=== PATIENT | male | born 1985 | race Caucasian/White ===

== ENCOUNTER 2024-07-09 22:40 | Inpatient (IN) | payer MEDICARE, MEDICAID ==
[2024-07-10] MEDS ORDERED: OLANZapine 10 MG TAB PO PRN (02:31)
[2024-07-10] MEDS ORDERED: MAGNESIUM HYDROXIDE 2,400 MG/30 ML CUP PO PRN (02:31)
[2024-07-10] MEDS ORDERED: MAG HYDROX/AL HYDROX/SIMETH 355 ML BOTTLE PO PRN (02:31)
[2024-07-10] MEDS ORDERED: hydrOXYzine HCL 50 MG/ML 1 ML VIAL IM PRN (02:31)
[2024-07-10] MEDS ORDERED: hydrOXYzine HCL 25 MG TAB PO PRN (02:31)
[2024-07-10] MEDS: NICOTINE 14MG/24HR PATCH TRANSDERM SCH (08:51)
[2024-07-10] MEDS ORDERED: traZODone HCL 50 MG TAB PO PRN (12:32)
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
[2024-07-10] MEDS: risperiDONE 1 MG TAB PO SCH (20:10)
--- NOTE | 2024-07-10 21:57 | P.CONS ---
History of Present Illness - Reason for Consult Consult date: 07/10/24 medical co-managmenet - Chief Complaint psychosis - History of Present Illness Suleman is a 38-year-old male with a past medical history of schizoaffective disorder. As per review of psychiatry team notes the patient present to the hospital psychosis. I had examined the patient with the nurse present as per the patient request. The patient denies any prior psychiatric diagnosis history. He expresses that he is currently challenging the medical system as he does not wish that he needs to be hospitalized he does report history of PTSD. He does not take any current medications. He denies any alcohol use and denies any recreational drug use. He denies any other complaints upon my evaluation. He does report that he does take occasionally bacitracin for his left foot Most recent vital signs are from from this morning which reveals a heart rate of 102 and blood pressure of 148/92. There is no other lab work on file Review of Systems Pertinent positives and negatives as discussed in HPI, a complete review of systems was performed and all other systems are negative. Past Medical History Past Medical History: Asthma History of Any Multi-Drug Resistant Organisms: None Reported Past Surgical History: Orthopedic Surgery Additional Past Surgical History / Comment(s): Nasal reconstruction, wrist surgery Past Anesthesia/Blood Transfusion Reactions: No Reported Reaction Smoking Status: Current every day smoker - Past Family History Mother Family Medical History: No Reported History Medications and Allergies Allergies Allergy/AdvReac Type Severity Reaction Status Date / Time fluphenazine Allergy Anaphylaxis Verified 07/10/24 02:31 haloperidol [From Haldol] Allergy Anaphylaxis Verified 07/10/24 02:31 Penicillins Allergy Rash/Hives Verified 07/10/24 02:31 Physical Exam Vitals: Vital Signs Temp Pulse Resp BP Pulse Ox 07/10/24 08:52 102 H 148/92 07/10/24 02:37 97.9 F 98 16 146/96 99 Intake and Output 07/10/24 07/10/24 07/10/24 06:59 14:59 22:59 Other: Weight 140.245 kg General: non toxic, no distress, male, obese appears stated age Derm: warm, dry Head: atraumatic, normocephalic, symmetric Eyes: EOMI, no lid lag, anicteric sclera ENT: Nose and ears atraumatic, no thrush, no pharyngeal erythema Neck: trachea midline, supple Mouth: no lip lesion, mucus membranes moist Cardiovascular: S1S2 reg, no murmur, Lungs: clear to ascultation bilateral Abdominal: soft, nontender to palpation, obese Ext: no gross muscle atrophy Neuro: moving all extremeties Psych: delusional thought process. defensive. Assessment and Plan Assessment: #) Schzioaffective disorder. Management primary as psychiatry team. Continue risperidone 1 mg hs as per psychiatry team #) tobacco use, tobacco cessation recommended. nicotine patch while inpatient #) Obesity, BMI 36.7. weight loss recommended #) Elevated bp without formal diagnosis of primary htn. monitor BP UDS, CBC, CMP a1c, tsh and lipid profile pending at the time of this writing Thank you for allowing us to take care of this patient. Please do not hesitate to contact sound physicians if any questions arise. Time with Patient: Greater than 30
[2024-07-11 01:20] LABS: Basophils # (A) 0.06 10*3/uL (0.00-0.10); Basophils % (A) 0.5 %; Eosinophils % (A) 0.8 %; HCT 45.8 % (39.6-50.0); HGB 15.6 g/dL (13.0-17.0); Lymphocytes # (A) 2.54 10*3/uL (0.90-5.00); MCH 29.4 pg (27.0-32.0); MCHC 34.1 g/dL (32.0-37.0); MCV 86.4 fL (80.0-97.0); Mean Platelet Volume 10.5 fL (9.5-12.2); Monocytes % (A) 9.1 %; Neutrophils # (A) 8.25 10*3/uL (1.80-7.70); Neutrophils % (A) 68.2 %; Platelet Count 304 10*3/uL (140-440); RDW 13.9 % (11.5-14.5)
[2024-07-11 01:22] LABS: ALT 54 U/L (4-49); AST 36 U/L (17-59); African American GFR (CKD) >90 (>60 ml/min/1.73 sqM); Albumin 4.4 g/dL (3.5-5.0); Alkaline Phosphatase 75 U/L (38-126); Anion Gap 10 mmol/L; Blood Urea Nitrogen 15 mg/dL (9-20); Calcium 10.4 mg/dL (8.4-10.2); Carbon Dioxide 24 mmol/L (22-30); Chloride 105 mmol/L (98-107); Glucose 80 mg/dL (74-99); Non-African American GFR(CKD) >90 (>60 ml/min/1.73 sqM); Potassium 4.5 mmol/L (3.5-5.1); Sodium 139 mmol/L (137-145); Total Bilirubin 0.7 mg/dL (0.2-1.3); Total Protein 6.7 g/dL (6.3-8.2)
--- NOTE | 2024-07-11 11:46 | P.PN ---
Progress Note - Text Progress Note Date: 07/11/24 Dictation was produced using [employer] dictation software. Please excuse any grammatical, word or spelling errors. Interval history: Patient was seen in his room and was directable and agreeable to speak with the teletypewriter operator in the office for psychiatric follow-up the patient requested to have a staff member in the room as a witness the mental health lawn technician agreed to attend the meeting. The patient states that he is feeling not feeling that great, states that he want to see a project economist since he has been having foot pain and he could not elaborate on it, reported that he only needs bacitracin. The patient was argumentative, asking the teletypewriter operator "are staff her? 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 When asked about sleep, patient states "are you going to note or chart my sleep habit," when asked about appetite he states that "I want meat and not soya nath base type of food, I don't want hair in my food, or spit in my drink." The patient continued to be argumentative, tangential during the interview, seem to be suspicious and paranoid. Denied any current safety concern, denied any suicidal, self-harm or homicidal thoughts or behavior, denied auditory or visual hallucination. States that he is not considering any psychotropic medication. Patient was encouraged to consider medication however reported that he is not going to be in involving any experiment. Patient was encouraged to participate in the milieu. The meeting was concluded at that time. Mental status exam: General Appearance: Patient appears to be stated age is alert, directable, and uncooperative, demanding and argumentative. Patient appears to have poor hygiene and grooming. Behavior: Patient is seated without any agitated behavior. He is antagonistic, guarded, paranoid, and argumentative Speech: Patient's speech is fluent and talkative Mood/Affect: Patient reports their mood is upset, affect is congruent and constricted. Suicidality/Homicidality: Patient denies having any homicidal ideation intent or plan. Denies any suicidal ideations intent or plan Perceptions: Patient denies any visual hallucinations and denies any auditory hallucinations Though content/process: Patient display predominant paranoid delusions, grandiosity, flight of ideas Memory and concentration: AOX3, grossly intact for the purposes of this session. Can spell "WORLD" backwards Judgment and insight: Poor IMPRESSIONS: Schizoaffective disorder, bipolar type Nonadherence with medications Nicotine dependence Assessment/Plan: Continue with current diagnosis. Patient continues to meet criteria for inpatient psychiatric admission for symptom stabilization and safety. Patient will be maintained on current psychotropic medication regimen which include Risperdal 1 mg p.o. at bedtime, and trazodone 50 mg as needed at bedtime, patient has not been compliant with his medication, refusing all of his psychotropic medication at this time, per report he remained paranoid and intrusive, pacing the hallway all night long, he was argumentative, demanding and antagonist during the interview, insisting on podiatry consult, lacking insight into his current mental illness, the medicine team assessed the patient, may consider podiatry consult. The patient came in on a petition and clinical certification, second CERT was completed yesterday. Monitor for medication compliance and for any psychotropic medication side effects. Will continue to monitor ongoing response to treatment. Encouraged participation in milieu.
--- NOTE | 2024-07-11 14:09 | P.PN ---
Subjective Progress Note Date: 07/11/24 I was requested to see patient for bilateral feet pain, evaluation bilateral purple discoloration on both feet. Patient was seen and evaluated at bedside He states that both his feet hurt especially heels, he was seeing that he just wants to wear his regular sneakers that are not allowed in the unit. On physical exam patient has strong bilateral dorsalis pedis, capillary refill is normal, he was also witnessed ambulating in the hallway. There is mild tenderness on palpation at the site of Achilles tendon. Patient recommended to use Voltaren gel and continue ibuprofen. Follow-up with primary care physician Objective - Vital Signs Vital signs: Vital Signs Temp 98.0 F 07/11/24 09:00 Pulse 99 07/11/24 09:00 Resp 18 07/11/24 09:00 BP 146/92 07/11/24 09:00 Pulse Ox 98 07/11/24 09:00 FiO2 - Labs CBC & Chem 7: 07/11/24 00:35 07/11/24 00:35 Labs: Abnormal Lab Results - Last 24 Hours (Table) 07/11/24 07/11/24 Range/Units 00:35 00:35 WBC 12.10 H (4.50-10.00) 10*3/uL Immature Gran # 0.05 H (0.00-0.04) 10*3/uL Neutrophils # 8.25 H (1.80-7.70) 10*3/uL Monocytes # 1.10 H (0.20-1.00) 10*3/uL Calcium 10.4 H (8.4-10.2) mg/dL ALT 54 H (4-49) U/L
[2024-07-11] MEDS: DICLOFENAC SODIUM GEL 100 GM TUBE TOPICAL SCH (15:37)
[2024-07-12 07:21] LABS: Chol/HDL Ratio 5.86 Ratio; LDL Cholesterol,Calculated 116.3 mg/dL (0.0-131.0)
--- NOTE | 2024-07-12 14:35 | P.PN ---
Progress Note - Text Progress Note Date: 07/12/24 Dictation was produced using [employer] dictation software. Please excuse any grammatical, word or spelling errors. Interval history: Patient was seen in his room and was directable and agreeable to speak with the check writer in his room for psychiatric follow-up. The patient states that he is feeling not that great today. Patient states that he does not understand why the check writer has to talk to him, states that " you are not a medical doctor, can I see you medical license." Patient was paranoid, antagonist, has no insight into his mental illness, speech was pressured, fast, aggressive in nature, he is argumentative, reported that he slept well overnight, " the best sleep ever" however it is reported that patient slept 1 hour in 4 (15 minutes) increments last night. When asked about SI/HI, patient states that he is not and asked why we have to asked those questions. Patient was answering " past, next" when the check writer tried to do the daily screen. He has not been compliant with his medication, states " they cause cancer." When asked about his feet, he states that still painful. He reported that he has been eating well and asking " can I have steak." The patient was encouraged to participate in the milieu, attend groups, consider his medication however patient did not want to comment on medication again. Mental status exam: General Appearance: Patient appears to be stated age is alert, directable, and uncooperative, demanding and argumentative. Patient appears to have poor hygiene and grooming. Behavior: Patient is laying in bed without any agitated behavior. He is antagonistic, guarded, paranoid, and argumentative Speech: Patient's speech is fluent and talkative, fast in rate, pressured at time Mood/Affect: Patient reports their mood is upset, affect is congruent and constricted. Suicidality/Homicidality: Patient denies having any homicidal ideation intent or plan. Denies any suicidal ideations intent or plan Perceptions: Patient denies any visual hallucinations and denies any auditory hallucinations Though content/process: Patient display predominant paranoid delusions, grandiosity, flight of ideas Memory and concentration: AOX3, grossly intact for the purposes of this session. Judgment and insight: Poor IMPRESSIONS: Schizoaffective disorder, bipolar type Nonadherence with medications Nicotine dependence Assessment/Plan: Continue with current diagnosis. Patient continues to meet criteria for inpatient psychiatric admission for symptom stabilization and safety. Patient will be maintained on current psychotropic medication regimen which include Risperdal 1 mg p.o. at bedtime, and trazodone 50 mg as needed at bedtime, patient has not been compliant with his medication, refusing all of his psychotropic medication at this time, per report he remained paranoid and intrusive, pacing the hallway all night long, poor sleep, this reported 1 hour interrupted of sleep last night, he was argumentative, demanding and antagonist during the interview, he lacks insight into his current mental illness, thought process is illogical and nonsensical. The medical team was able to assess the patient and recommended to use Voltaren gel and continue ibuprofen. The patient came in on a petition and clinical certification, second CERT was completed yesterday. Monitor for medication compliance and for any psychotropic medication side effects. Will continue to monitor ongoing response to treatment. Encouraged participation in milieu.
--- NOTE | 2024-07-13 13:15 | P.PN ---
Progress Note - Text Progress Note Date: 07/13/24 Interval History: Patient was seen in his room and was directable and agreeable to speak with wr iter in the room. He continues to refuse psychotropic medications in addition to medical ones. He continues to display poor insight, paranoia. Patient was previously on Abilify Aristada and this was mentioned however patient was not amenable to this stating that he does not need any "brain inhibitors". He states feeling tired today due to some sleep difficulties overnight. He requests his shoes as he has been walking around barefoot. He did display some delusional thoughts in addition to disorganization, when asked if he has any homicidal ideations he states "we are all reincarnated", grandiosity noted. At this time patient denies any suicidal or homicidal ideations, intent or plan. Patient denies any auditory, visual hallucinations. Mental Status Exam: General Appearance: Patient appears to be stated age is alert, directable, however largely uncooperative. He has poor grooming and hygiene Behavior: Patient is calmly laying without any agitated behavior. Speech: Patient's speech is fluent and nonsensical Mood/Affect: Mood is "tired", affect is congruent and constricted. Suicidality/Homicidality: Patient denies having any suicidal or homicidal ideation intent or plan. Perceptions: Patient denies any visual hallucinations and denies any auditory hallucinations Though content/process: There is evidence of grandiosity delusions, paranoia, disorganization and thoughts Memory and concentration: AOX3, grossly intact for the purposes of this session Judgment and insight: Poor Assessment Schizoaffective disorder, bipolar type Nonadherence with medications Nicotine dependence Plan: -Patient continues to meet criteria for inpatient psychiatric admission for symptom stabilization and safety. Patient has not signed adult voluntary form and medication consent and was placed in patient's chart. -Medications: Continue to offer Risperdal 1 mg at bedtime for psychosis, trazodone 50 mg as needed at bedtime for insomnia (note patient has been refusing all medications other than nicotine patch) -When necessary Zyprexa and hydroxyzine for agitation/aggression. -Labs: CBC revealed WBC 12, lipid panel revealed triglycerides 223 otherwise grossly WNL -SW on board for discharge planning. Encouraged the patient to participate in milieu. Currently awaiting deferral with implant coordinator and court date.
[2024-07-14] MEDS: ACETAMINOPHEN TAB 325 MG TAB PO PRN (02:48)
[2024-07-14] MEDS: IBUPROFEN 600 MG TAB PO PRN (02:48)
--- NOTE | 2024-07-14 12:10 | P.PN ---
Progress Note - Text Progress Note Date: 07/14/24 Interval History: Patient was seen wandering the hallways and was directable and agreeable to sp kerak with information writer in the [place] privately. He continues to refuse his Risperdal, emphasizing how he does not want to be on any "brain inhibitors" and that he previously experienced brain fog on Abilify. Alternative medications were discussed however patient was not amenable to this. He expressed delusional thoughts stated that he has an emergency activation button that he is able to push within himself in order to evacuate stool. He does report some constipation however declines any medications to assist including milk of magnesia. He displayed grandiosity, stated he had his GED since elementary school however still attended school even though he did not necessarily need to. Poor insight into his need for treatment. At this time patient denies any suicidal or homicidal ideations, intent or plan. Patient denies any auditory, visual hallucinations. Mental Status Exam: General Appearance: Patient appears to be stated age is alert, directable, and overall cooperative. He is overweight Behavior: Patient is calmly standing without any agitated behavior. Speech: Patient's speech is fluent and nonpressured. Mood/Affect: Mood is "okay", affect is congruent and constricted. Suicidality/Homicidality: Patient denies having any suicidal or homicidal ideation intent or plan. Perceptions: Patient denies any visual hallucinations and denies any auditory hallucinations Though content/process: Patient displayed grandiosity and bizarre delusions, disorganized thoughts Memory and concentration: AOX3, grossly intact for the purposes of this session Judgment and insight: Poor Assessment Schizoaffective disorder, bipolar type Nonadherence with medications Nicotine dependence Plan: -Patient continues to meet criteria for inpatient psychiatric admission for symptom stabilization and safety. Patient has not signed adult voluntary form and medication consent and was placed in patient's chart. -Medications: Continue to offer Risperdal 1 mg at bedtime for psychosis, trazodone 50 mg as needed at bedtime for insomnia (note patient has been refusing all medications) -When necessary Zyprexa and hydroxyzine for agitation/aggression. -Labs: WBC elevated mildly at 12, lipid panel revealed triglycerides at 223 otherwise grossly WNL -NRT - nicotine patch -SW on board for discharge planning. Encouraged the patient to participate in milieu. Currently awaiting deferral with assistant district attorney and court date.
--- NOTE | 2024-07-15 12:43 | P.PN ---
Progress Note - Text Progress Note Date: 07/15/24 Interval History: Patient was seen in bed and was directable and agreeable to speak with automotive service writer in the room. Patient was brief in conversation, did not wish to speak to automotive service writer however did report "elevated heart rate" and being upset due to "the same things I have been saying". Patient's vitals have been grossly stable with no tachycardia noted. He mentions poor sleep overnight related to poor pain management however does not wish to start medications to help for sleep or take Voltaren gel for the pain. At this time patient denies any suicidal or homicidal ideations, intent or plan. He continues to refuse Risperdal at night and is not amenable to possibly trying a different medication, poor insight into need for treatment. Mental Status Exam: General Appearance: Patient appears to be stated age is alert, briefly cooperative. Behavior: Patient is calmly laying without any agitated behavior. Speech: Patient's speech is fluent and nonpressured, brief. Mood/Affect: Mood is "upset", affect is congruent and constricted. Suicidality/Homicidality: Patient denies having any suicidal or homicidal ideation intent or plan. Perceptions: Patient denies any visual hallucinations and denies any auditory hallucinations Though content/process: Superficially, there were no delusional thoughts expressed however patient did appear disorganized Memory and concentration: AOX3, grossly intact for the purposes of this session Judgment and insight: Poor Assessment Schizoaffective disorder, bipolar type Nonadherence with medications Nicotine dependence Plan: -Patient continues to meet criteria for inpatient psychiatric admission for symptom stabilization and safety. Patient has not signed adult voluntary form and medication consent and was placed in patient's chart. -Medications: Continue to offer Risperdal 1 mg at bedtime for psychosis, trazodone 50 mg as needed at bedtime for insomnia (note patient has been refusing all medications) -When necessary Zyprexa and hydroxyzine for agitation/aggression. -Labs: Reviewed -NRT - nicotine patch -SW on board for discharge planning. Encouraged the patient to participate in milieu. Currently awaiting deferral with trust and estates attorney and court date.
--- NOTE | 2024-07-16 12:20 | P.PN ---
Progress Note - Text Progress Note Date: 07/16/24 Interval History: Patient was seen wandering the hallways and was directable and agreeable to sp eak with chief writer in the [place]. Patient continues to refuse his psychotropic medications, displaying poor insight stating that he does not need medications. He did speak to the software engineer mobile yesterday however did not sign the deferral as he wished to go to court. He did display some bizarre thoughts of having a software engineer mobile patent bacitracin and that he wishes to use bacitracin for his feet instead of Voltaren gel to prevent gangrene which ultimately could lead to him losing his feet. Public Health Worker did take a look at patient's feet that appeared dirty and some blisters evident. He claims his blisters on his feet prevent him from showering, disheveled appearance. He claims to have slept well overnight however staff documented poor sleep, up pacing the halls. At this time patient denies any suicidal or homicidal ideations, intent or plan. Patient denies any auditory, visual hallucinations. Mental Status Exam: General Appearance: Patient appears to be stated age is alert, directable, and cooperative. He is disheveled Behavior: Patient is calmly standing without any agitated behavior. Speech: Patient's speech is fluent and nonpressured. Mood/Affect: Mood is "all right", affect is congruent and constricted. Suicidality/Homicidality: Patient denies having any suicidal or homicidal ideation intent or plan. Perceptions: Patient denies any visual hallucinations and denies any auditory hallucinations Though content/process: There is evidence of nonbizarre delusions, disorganized thoughts Memory and concentration: AOX3, grossly intact for the purposes of this session Judgment and insight: Poor Assessment Schizoaffective disorder, bipolar type Nonadherence with medications Nicotine dependence Plan: -Patient continues to meet criteria for inpatient psychiatric admission for symptom stabilization and safety. Patient has not signed adult voluntary form and medication consent and was placed in patient's chart. -Medications: Continue to offer Risperdal 1 mg at bedtime for psychosis, trazodo ne 50 mg as needed at bedtime for insomnia (note patient has been refusing all medications) -When necessary Zyprexa and hydroxyzine for agitation/aggression. -Labs: Reviewed -NRT - nicotine patch -SW on board for discharge planning. Encouraged the patient to participate in milieu. Patient did not sign deferral yesterday, awaiting court date
[2024-07-16] MEDS: BACITRACIN OINT 1 EACH PACKET TOPICAL SCH (15:16)
--- NOTE | 2024-07-17 11:40 | P.PN ---
Progress Note - Text Progress Note Date: 07/17/24 Interval History: Patient was seen wandering the hallways and was directable and agreeable to sp eak with adjusto writer operator in the [place]. Patient continues to display disorganized thoughts, difficult to follow in conversation. Patient was seen wearing socks on the unit instead of being barefoot however he still reports foot pain but has been taking the bacitracin. He states sleeping better. Patient talked about recently being adopted and was in foster care. He states he will be discharged to the law offices however became upset when adjusto writer operator inquired about the reasonings behind this. His response was he was treated like a slave however would not elaborate further. He continues to refuse Risperdal. Awaiting court next Saturday. At this time patient denies any suicidal or homicidal ideations, intent or plan. Patient denies any auditory, visual hallucinations. Mental Status Exam: General Appearance: Patient appears to be stated age is alert, directable, and cooperative. He is obese, disheveled in appearance Behavior: Patient is calmly standing without any agitated behavior. Overall anita ite Speech: Patient's speech is fluent and nonpressured. Mood/Affect: Mood is "okay I guess", affect is congruent and constricted. Suicidality/Homicidality: Patient denies having any suicidal or homicidal ideation intent or plan. Perceptions: Patient denies any visual hallucinations and denies any auditory hallucinations Though content/process: There is evidence of disorganized thoughts, bizarre delusions Memory and concentration: AOX3, grossly intact for the purposes of this session Judgment and insight: Poor Assessment Schizoaffective disorder, bipolar type Nonadherence with medications Nicotine dependence Plan: -Patient continues to meet criteria for inpatient psychiatric admission for symptom stabilization and safety. Patient has not signed adult voluntary form and medication consent and was placed in patient's chart. -Medications: Continue to offer Risperdal 1 mg at bedtime for psychosis, trazodone 50 mg as needed at bedtime for insomnia (note patient has been refusing all medications) -When necessary Ativan and Haldol for agitation/aggression. -Labs: Reviewed -NRT - nicotine patch -SW on board for discharge planning. Encouraged the patient to participate in milieu. Patient did not signed deferral, awaiting court scheduled for next Saturday.
--- NOTE | 2024-07-18 14:27 | P.PN ---
Subjective Progress Note Date: 07/18/24 Principal diagnosis: Schizoaffective disorder bipolar type SUBJECTIVE: My doctor won't give me the anxiety medictions that I want, so why should I talk to you? Patient was seen sleeping in his dark room at 2 in the pm. He continues to refuse Risperdal. Awaiting court next Saturday. At this time patient denies any suicidal or homicidal ideations, intent or plan. Patient denies any auditory, visual hallucinations. Mental Status Exam: General Appearance: Patient appears to be stated age is alert. He is obese, disheveled in appearance Behavior: Patient is calm. Overall polite but did not get up to talk to me or have any eye contact. Speech: Patient's speech is fluent and nonpressured. Mood/Affect: Mood is "okay I guess", affect is constricted. Suicidality/Homicidality: Patient denies having any suicidal or homicidal ideation intent or plan. Perceptions: Patient denies any visual hallucinations and denies any auditory hallucinations Though content/process: He did not talk enough to show his function. Memory and concentration: AOX3, grossly intact for the purposes of this session Judgment and insight: Poor Assessment Schizoaffective disorder, bipolar type Nonadherence with medications Nicotine dependence Plan: -Patient continues to meet criteria for inpatient psychiatric admission for symptom stabilization and safety. Patient has not signed adult voluntary form and medication consent and was placed in patient's chart. -Medications: Continue to offer Risperdal 1 mg at bedtime for psychosis, trazodone 50 mg as needed at bedtime for insomnia (note patient has been refusing all medications) -When necessary Ativan and Haldol for agitation/aggression. -Labs: Reviewed -NRT - nicotine patch -SW on board for discharge planning. Encouraged the patient to participate in milieu. Patient did not signed deferral, awaiting court scheduled for next Saturday. Objective - Vital Signs Vital signs: Vital Signs Temp 97.4 F L 07/18/24 08:10 Pulse 60 07/18/24 08:08 Resp 16 07/18/24 08:08 BP 147/91 07/18/24 08:08 Pulse Ox 94 L 07/18/24 08:08 FiO2 - Labs CBC & Chem 7: 07/11/24 00:35 07/11/24 00:35
--- NOTE | 2024-07-19 12:18 | P.PN ---
Subjective Progress Note Date: 07/19/24 Principal diagnosis: Schizoaffective disorder bipolar type SUBJECTIVE: Patient was sleeping at noon in a dark room and refused to get up and, talk. He said "I am fine" Patient was seen sleeping in his dark room at 2 in the pm. He continues to refuse Risperdal. Awaiting court next Saturday. At this time patient denies any suicidal or homicidal ideations, intent or plan. Patient denies any auditory, visual hallucinations. Mental Status Exam: No eye contact not cooperative General Appearance: Patient appears to be stated age is alert. He is obese, disheveled in appearance Behavior: Patient is calm. Overall polite but did not get up to talk to me or have any eye contact. Speech: Patient's speech limited because he just did not want to talk Mood/Affect: Mood is "okay I guess", affect is constricted. Suicidality/Homicidality: Patient denies having any suicidal or homicidal ideation intent or plan. Perceptions: Patient denies any visual hallucinations and denies any auditory hallucinations Though content/process: He did not talk enough to show his function. Memory and concentration: AOX3, grossly intact for the purposes of this session Judgment and insight: Poor Assessment not motivated and not doing well but not agitated either Schizoaffective disorder, bipolar type Nonadherence with medications Nicotine dependence Plan: -Patient continues to meet criteria for inpatient psychiatric admission for symptom stabilization and safety. Patient has not signed adult voluntary form and medication consent and was placed in patient's chart. -Medications: Continue to offer Risperdal 1 mg at bedtime for psychosis, trazodone 50 mg as needed at bedtime for insomnia (note patient has been refusing all medications) -When necessary Ativan and Haldol for agitation/aggression. -Labs: Reviewed -NRT - nicotine patch -SW on board for discharge planning. Encouraged the patient to participate in milieu. Patient did not signed deferral, awaiting court scheduled for next Saturday. Objective - Vital Signs Vital signs: Vital Signs Temp 97.1 F L 07/19/24 09:00 Pulse 101 H 07/19/24 09:00 Resp 16 07/19/24 09:00 BP 135/86 07/19/24 09:00 Pulse Ox 99 07/19/24 09:00 FiO2 Intake & Output 07/18/24 07/19/2407/19/25 18:59 06:59 18:59 Weight 140.296 kg - Labs CBC & Chem 7: 07/11/24 00:35 07/11/24 00:35
--- NOTE | 2024-07-20 12:50 | P.PN ---
Progress Note - Text Progress Note Date: 07/20/24 Interval History: Patient was seen wandering the hallways and was directable and agreeable to sp eak with racebook writer in the [place]. Continues to refuse Risperdal, poor insight into need for treatment. He was seen wearing protective socks for his feet with several layers of socks on underneath. He continues to display delusional thoughts, states a female patrol police sergeant has a grudge against him due to her sexual advances towards him despite the opposite being reported per patient. He was jovial, expressed how racebook writer should go through with this accreditation program in order to increase pay. At this time patient denies any suicidal or homicidal ideations, intent or plan. Patient denies any auditory, visual hallucinations. Mental Status Exam: General Appearance: Patient appears to be stated age is alert, directable, and cooperative. He is disheveled, obese Behavior: Patient is calmly standing without any agitated behavior. Speech: Patient's speech is fluent and nonpressured. Mood/Affect: Mood is "indifferent", affect is congruent and constricted. Suicidality/Homicidality: Patient denies having any suicidal or homicidal ideation intent or plan. Perceptions: Patient denies any visual hallucinations and denies any auditory hallucinations Though content/process: There is evidence of delusions, disorganized thoughts Memory and concentration: AOX3, grossly intact for the purposes of this session Judgment and insight: Poor Assessment Schizoaffective disorder, bipolar type Nonadherence with medications Nicotine dependence Plan: -Patient continues to meet criteria for inpatient psychiatric admission for symptom stabilization and safety. Patient has not signed adult voluntary form and medication consent and was placed in patient's chart. -Medications: Continue to offer Risperdal 1 mg at bedtime for psychosis, trazodone 50 mg as needed at bedtime for insomnia (note patient has been refusing all medications) -When necessary Ativan and Haldol for agitation/aggression. -Labs: Reviewed -NRT - nicotine patch -SW on board for discharge planning. Encouraged the patient to participate in milieu. Patient did not sign deferral, awaiting court scheduled for this Saturday
--- NOTE | 2024-07-21 12:31 | P.PN ---
Progress Note - Text Progress Note Date: 07/21/24 Interval History: Patient was seen wandering the hallways and was directable and agreeable to sp saúl with creative services writer in the [place] privately. He was informed that court was tomorrow. He states his feet are doing better, less painful. He was seen pacing the halls. He expressed no concerns today. He continues to refuse his Risperdal however behaves appropriately on the unit, no PRNs for agitation. At this time patient denies any suicidal or homicidal ideations, intent or plan. Patient denies any auditory, visual hallucinations. Mental Status Exam: General Appearance: Patient appears to be stated age is alert, directable, and cooperative. He is disheveled, seen ambulating barefoot on the unit Behavior: Patient is calmly seated without any agitated behavior. Speech: Patient's speech is fluent and nonpressured. Mood/Affect: Mood is "indifferent", affect is congruent and constricted. Suicidality/Homicidality: Patient denies having any suicidal or homicidal ideation intent or plan. Perceptions: Patient denies any visual hallucinations and denies any auditory hallucinations Though content/process: Disorganization noted, there were no overt delusions expressed Memory and concentration: AOX3, grossly intact for the purposes of this session Judgment and insight: Poor Assessment Schizoaffective disorder, bipolar type Nonadherence with medications Nicotine dependence Plan: -Patient continues to meet criteria for inpatient psychiatric admission for symptom stabilization and safety. Patient has not signed adult voluntary form and medication consent and was placed in patient's chart. -Medications: Continue to offer Risperdal 1 mg at bedtime for psychosis, trazodone 50 mg as needed at bedtime for insomnia (note patient has been refusing all medications) -When necessary Ativan and Haldol for agitation/aggression. -Labs: Reviewed -NRT - nicotine patch -SW on board for discharge planning. Encouraged the patient to participate in milieu. Patient did not sign deferral, court scheduled for tomorrow
[2024-07-22 08:20] VITALS: BMI 36.6
--- NOTE | 2024-07-22 14:14 | P.PN ---
Progress Note - Text Progress Note Date: 07/22/24 Interval History: Patient was seen wandering the hallways and was directable and agreeable to sp eak with job specification writer in the [place]. Patient was in bright spirits, polite with no questions related to the court hearing for today. During the court hearing, patient questioned job specification writer's license to practice medicine, expressing perjury from those to testified, stating that he has never been on a long-acting injectable. Patient displayed confusion during the court proceedings but ultimately was court ordered today for mental health treatment. At this time patient denies any suicidal or homicidal ideations, intent or plan. Patient denies any auditory, visual hallucinations. Mental Status Exam: General Appearance: Patient appears to be stated age is alert, directable, and cooperative. He is disheveled, tall Behavior: Patient is calmly standing without any agitated behavior. Speech: Patient's speech is fluent and nonpressured. Mood/Affect: Mood is "good", affect is congruent and constricted. Suicidality/Homicidality: Patient denies having any suicidal or homicidal ideation intent or plan. Perceptions: Patient denies any visual hallucinations and denies any auditory hallucinations Though content/process: There is evidence of paranoia, disorganization and thoughts Memory and concentration: AOX3, grossly intact for the purposes of this session Judgment and insight: Poor Assessment Schizoaffective disorder, bipolar type Nonadherence with medications Nicotine dependence Plan: -Patient continues to meet criteria for inpatient psychiatric admission for symptom stabilization and safety. Patient has not signed adult voluntary form and medication consent and was placed in patient's chart. -Medications: Continue Risperdal 1 mg at bedtime for psychosis with as needed IM Zyprexa [address] order if patient refuses p.o. Risperdal, continue trazodone 50 mg as needed at bedtime for insomnia -When necessary Ativan and Haldol for agitation/aggression. -Labs: Reviewed -NRT - nicotine patch -SW on board for discharge planning. Encouraged the patient to participate in milieu. Patient court ordered today. Patient ultimately to be transition to Risperdal [place] and then will be discharged to [facility] facility in [place].
[2024-07-22] MEDS: OLANZapine 10 MG VIAL IM PRN (22:25)
--- NOTE | 2024-07-23 12:06 | P.PN ---
Progress Note - Text Progress Note Date: 07/23/24 Interval History: Patient was seen in bed and was directable and agreeable to speak with typewriter mechanic in the room. Patient was upset with typewriter mechanic due to being court ordered yesterday. He states typewriter mechanic is not an accredited doctor and that he is receiving injections that he does not need. He continues to display poor insight. He then abruptly ended the interview, asking typewriter mechanic to leave. He did not take p.o. Risperdal last night and ultimately received as needed IM Zyprexa back up per court order. He was encouraged to take the oral Risperdal tonight. Mental Status Exam: General Appearance: Patient appears to be stated age is alert, directable, and cooperative. Disheveled appearance Behavior: Patient is calmly laying without any agitated behavior. Irritable Speech: Patient's speech is brief, nonpressured Mood/Affect: Mood is upset, affect is congruent and constricted. Suicidality/Homicidality: Patient denies having any suicidal or homicidal ideation intent or plan. Perceptions: Patient denies any visual hallucinations and denies any auditory hallucinations Though content/process: Superficially there are no delusions exhibited however interview was shortened today Memory and concentration: AOX3, grossly intact for the purposes of this session Judgment and insight: Poor Assessment Schizoaffective disorder, bipolar type Nonadherence with medications Nicotine dependence Plan: -Patient continues to meet criteria for inpatient psychiatric admission for symptom stabilization and safety. Patient has signed adult voluntary form and medication consent and was placed in patient's chart. -Medications: Continue Risperdal 1 mg at bedtime for psychosis with as needed IM Zyprexa [address] if patient refuses p.o. Risperdal, continue trazodone 50 mg as needed at bedtime for insomnia -When necessary Ativan and Haldol for agitation/aggression. -Labs: Reviewed -NRT - nicotine patch -SW on board for discharge planning. Encouraged the patient to participate in milieu. Patient court ordered yesterday. Ultimate plan is to transition to [facility] prior to discharge to [facility] living facility, likely sometime next week
--- NOTE | 2024-07-24 12:37 | P.PN ---
Progress Note - Text Progress Note Date: 07/24/24 Interval History: Patient was seen in bed and was directable and agreeable to speak with internal communications writer in the room. He continues to be upset with internal communications writer due to being court ordered. He has not been adherent with his p.o. meds and has been receiving IM as needed backups. Patient was again encouraged to take the medication by mouth as he states he does not like getting the injections however does not like Risperdal. Attempted to discuss alternative medications such as Abilify if patient does not like Risperdal however patient was not receptive to this, stating "I wish to approve the medication that I take" and he was reminded of the court order. He then terminated the interview. Mental Status Exam: General Appearance: Patient appears to be stated age is alert, directable, and not cooperative. Behavior: Patient is calmly laying without any agitated behavior. He was upset Speech: Patient's speech is brief and nonpressured. Mood/Affect: Mood is irritable, affect is congruent and constricted. Suicidality/Homicidality: Patient denies having any suicidal or homicidal ideation intent or plan. Perceptions: Patient denies any visual hallucinations and denies any auditory hallucinations Though content/process: There is no evidence of any overt delusional thought content however patient did terminate the interview prematurely. Memory and concentration: AOX3, grossly intact for the purposes of this session Judgment and insight: Poor Assessment Schizoaffective disorder, bipolar type Nonadherence with medications Nicotine dependence Plan: -Patient continues to meet criteria for inpatient psychiatric admission for symptom stabilization and safety. Patient has not signed adult voluntary form and medication consent and was placed in patient's chart. -Medications: Increase Risperdal to 1 mg twice daily for psychosis with as needed IM Zyprexa 10 mg twice daily backup per court order if patient refuses p.o. Risperdal (patient again was highly encouraged to take the medication by mouth) -When necessary Ativan and Haldol for agitation/aggression. -Labs: Reviewed -NRT - nicotine patch -SW on board for discharge planning. Encouraged the patient to participate in milieu. Patient court ordered on Saturday. Plans to transition to [facility] prior to discharge, likely sometime next week
[2024-07-24] MEDS: risperiDONE 1 MG TAB PO SCH (20:51)
[2024-07-24] MEDS: OLANZapine 10 MG VIAL IM PRN (21:56)
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
[2024-07-26] MEDS: OLANZapine 10 MG VIAL IM PRN (10:04)
--- NOTE | 2024-07-26 14:20 | P.PN ---
Progress Note - Text Progress Note Date: 07/26/24 Dictation was produced using [employer] dictation software. Please excuse any grammatical, word or spelling errors. Interval history: Patient was seen in his room and was directable and agreed to speak with the machine sign writer in his room for psychiatric follow-up, he refused to join the machine sign writer and the office. The patient states that he wants to see the machine sign writer medical certificate and want to see his medical license, patient refused to answer any question and he reported " I am not going to answer any of your questions still uses show me your medical license." The patient covered his head and went back to sleep. Was reminded to let staff know if he has any concerns. The interview was concluded at that time. Per report the patient did not sleep and was pacing the halls, he still socialize with peers, patient was witnessed responding to internal stimuli, whispering to self. He has been refusing his psychotropic medication Risperdal oral and he has been getting Zyprexa 10 mg IM backup. The patient has no insight into his current mental illness, he is argumentative and demanding. This reported that he has been eating well. He denied any current suicidal or homicidal or self-harm thoughts or behavior. Will continue to monitor. Mental Status Exam: General Appearance: Patient appears to be stated age is alert, nondirectable, and not cooperative. Behavior: Patient refused to join the machine sign writer to the office, was argumentative, and upset, he was seen during the day pacing the hallway Speech: Patient's speech is brief and nonpressured. Mood/Affect: Mood is irritable, affect is congruent and constricted. Suicidality/Homicidality: Patient denies having any suicidal or homicidal chris ation intent or plan. Perceptions: Patient denies any visual hallucinations and denies any auditory hallucinations Though content/process: There is no evidence of any overt delusional thought content however patient did terminate the interview prematurely. Thought processes illogical and nonsensical. Memory and concentration: AOX3, grossly intact for the purposes of this session Judgment and insight: Poor Assessment Schizoaffective disorder, bipolar type Nonadherence with medications Nicotine dependence Assessment/Plan: Continue with current diagnosis. Patient continues to meet criteria for inpatient psychiatric admission for symptom stabilization and safety. Patient will be maintained on current psychotropic medication regimen which include Risperdal 1 mg p.o. twice daily, with Zyprexa 10 mg twice daily as needed as a backup per court order if patient refuse p.o. risperidone, no changes today, may consider changing the backup IM medication to Haldol if patient continue not to respond. The patient denied any side effects, denied any muscle stiffness, rigidity, abnormal movement, or drooling monitor for medication compliance and for any psychotropic medication side effects. Will continue to monitor ongoing response to treatment. Encouraged participation in milieu.
--- NOTE | 2024-07-27 12:00 | P.PN ---
Progress Note - Text Progress Note Date: 07/27/24 Interval History: Patient was seen in bed and was directable and agreeable to speak with rewriter in the room. Continues to be upset with rewriter due to being court ordered for mental health treatment. He has been nonadherent with oral Risperdal, requiring twice daily IM backup per court order. Patient expressed a concern with getting "male boobs" with Risperdal to which rewriter offered an alternative medication with Abilify to which patient states he request a list of 10 different medications he can choose from however given the need to transition to HALL with allergies to Prolixin and Haldol, patient was given 2 options between Abilify and Risperdal to which he declined both. He was reminded of court order and was encouraged to take the medications by mouth to which he disagreed. He then requested a different doctor and terminated the interview. Mental Status Exam: General Appearance: Patient appears to be stated age is alert, uncooperative Behavior: Patient is calmly laying without any agitated behavior. He is irritable Speech: Patient's speech is fluent and nonpressured. Mood/Affect: Mood is upset, affect is congruent and constricted. Suicidality/Homicidality: Patient denies having any suicidal or homicidal ideation intent or plan. Perceptions: Patient denies any visual hallucinations and denies any auditory hallucinations Though content/process: There is no evidence of any superficial delusional thought content and thought process is linear, illogical. Memory and concentration: AOX3, grossly intact for the purposes of this session Judgment and insight: Poor Assessment Schizoaffective disorder, bipolar type Nonadherence with medication regimen Nicotine dependence Plan: -Patient continues to meet criteria for inpatient psychiatric admission for symptom stabilization and safety. Patient has not signed adult voluntary form and medication consent and was placed in patient's chart. -Medications: Continue to offer Risperdal 1 mg twice daily with as needed IM Zyprexa backup per court order if patient refuses (patient was strongly encouraged to take this medication by mouth) -When necessary Zyprexa and hydroxyzine for agitation/aggression. -Labs: Reviewed -NRT - nicotine patch -SW on board for discharge planning. Encouraged the patient to participate in milieu. Anticipate discharge to [facility] on Saturday after transitioning to HALL tomorrow
[2024-07-27] MEDS ORDERED: BENZTROPINE 2 MG/2 ML AMP IM PRN (12:42)
--- NOTE | 2024-07-28 12:26 | P.PN ---
Progress Note - Text Progress Note Date: 07/28/24 Interval History: Patient was seen wandering the hallways and was directable and agreeable to sp eak with freelance copywriter in the halls privately. He continues to express delusional statements, referring to himself as a colleague and not a patient. He continues to refuse p.o. Risperdal, requiring IM Zyprexa backup per court order with poor insight into his need for treatment despite offering alternative medications. Patient was more polite with freelance copywriter today despite him requesting a new doctor. He was disheveled in appearance. He displayed paranoia, states he does not want to have people know where he lived when told about the upcoming discharge. At this time patient denies any suicidal or homicidal ideations, intent or plan. Patient denies any auditory, visual hallucinations. Mental Status Exam: General Appearance: Patient appears to be stated age is alert, directable, and more cooperative. Behavior: Patient is calmly standing without any agitated behavior. Less irritable with freelance copywriter Speech: Patient's speech is fluent and nonpressured. Mood/Affect: Mood is improving mildly, affect is congruent and constricted. Suicidality/Homicidality: Patient denies having any suicidal or homicidal ideation intent or plan. Perceptions: Patient denies any visual hallucinations and denies any auditory hallucinations Though content/process: There is evidence of delusional thoughts, paranoia Memory and concentration: AOX3, grossly intact for the purposes of this session Judgment and insight: Improving mildly Assessment Schizoaffective disorder, bipolar type Nonadherence with medication regimen Nicotine dependence Plan: -Patient continues to meet criteria for inpatient psychiatric admission for symptom stabilization and safety. Patient has not signed adult voluntary form and medication consent and was placed in patient's chart. -Medications: Risperdal Uzedy 100 mg subcutaneous to be given today, discontinue p.o. Risperdal with as needed IM Zyprexa backup per court order. Continue Cogentin 1 mg IM as needed for EPS -When necessary Zyprexa and hydroxyzine for agitation/aggression. -Labs: Reviewed -NRT - nicotine patch -SW on board for discharge planning. Encouraged the patient to participate in milieu. Patient court ordered last Saturday, patient to be discharged to [facility] tomorrow pending transition to HALL today
[2024-07-28] MEDS: risperiDONE 100 MG/0.28 ML SYR (NO COST) SQ ONE (21:38)
--- NOTE | 2024-07-29 11:51 | P.PN ---
Progress Note - Text Progress Note Date: 07/29/24 Interval History: Patient was seen wandering the hallways and was directable and agreeable to sp eak with writer editor in the muñoz privately. Patient appeared more bright and cooperative today, expressing remorse for his previous behavior. He is tolerating the HALL well, expressing previous concerns with getting "male boobs" however patient was encouraged to communicate this concern with his outpatient psychiatrist for close monitoring. He reminded writer editor that this shot will be due again next month. He continues to express delusions described as pushing a button on his belly that causes him to lose weight. He states his last bowel movement was 2 days ago. When communicated that his ride would not be able to pick him up today, patient took this news well with no outbursts. At this time patient denies any suicidal or homicidal ideations, intent or plan. Patient denies any auditory, visual hallucinations. Patient denies any side effects from the medications. Mental Status Exam: General Appearance: Patient appears to be stated age is alert, directable, and cooperative. Behavior: Patient is calmly standing without any agitated behavior. He was pleasant Speech: Patient's speech is fluent and nonpressured. Mood/Affect: Mood is improving mildly, affect is congruent and constricted. Suicidality/Homicidality: Patient denies having any suicidal or homicidal ideation intent or plan. Perceptions: Patient denies any visual hallucinations and denies any auditory hallucinations Though content/process: There is evidence of baseline, bizarre delusions Memory and concentration: AOX3, grossly intact for the purposes of this session Judgment and insight: Improving mildly Assessment Schizoaffective disorder, bipolar type Nonadherence with medication regimen Nicotine dependence Plan: -Patient continues to meet criteria for inpatient psychiatric admission for symptom stabilization and safety. Patient has not signed adult voluntary form and medication consent and was placed in patient's chart. -Medications: Patient received Risperdal Uzedy 100 mg subcu yesterday, next dose due on 08/25/2024, continue Cogentin 1 mg IM as needed for EPS, add Benadryl 50 mg at bedtime for insomnia -When necessary Zyprexa and hydroxyzine for agitation/aggression. -Labs: Reviewed -NRT - nicotine patch -SW on board for discharge planning. Encouraged the patient to participate in milieu. Patient be discharged to [facility] tomorrow with his ride picking him up around 1030
[2024-07-30] MEDS: diphenhydrAMINE 50 MG CAP PO PRN (00:42)
[2024-07-30 10:38] VITALS: BP 128/81; PULSE 103; RESP 16; TEMP 97.4
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
== END 2024-07-30 11:10 | disposition home or self-care (01) | DRG 885 ==
LOC: 3MHU 07-10 01:20
PROVIDERS: ADMIT Psychiatry & Neurology Psychiatry; ATTEND Psychiatry & Neurology Psychiatry
DX: F25.0 Schizoaffective disorder, bipolar type (principal); F12.10 Cannabis abuse, uncomplicated; J45.909 Unspecified asthma, uncomplicated; F17.210 Nicotine dependence, cigarettes, uncomplicated; F41.9 Anxiety disorder, unspecified; K59.00 Constipation, unspecified; G47.9 Sleep disorder, unspecified; R03.0 Elevated blood-pressure reading, without diagnosis of hypertension; M79.673 Pain in unspecified foot; Z91.148 Patient's other noncompliance with medication regimen for other reason; Z88.0 Allergy status to penicillin; Z88.8 Allergy status to other drugs, medicaments and biological substances; Z71.51 Drug abuse counseling and surveillance of drug abuser
CPT/HCPCS: 80053; 80061; 83036; 84443; 85025

== ENCOUNTER 2024-08-09 02:47 | Emergency (ER) | payer MEDICARE, OTHER ==
[2024-08-09] MEDS: BENZONATATE 100 MG CAP PO STA (05:36)
[2024-08-09] MEDS: ALBUTEROL NEBULIZED 2.5 MG/3 ML INHALATION STA (05:40)
[2024-08-09 06:31] VITALS: RESP 18; TEMP 98.5
--- NOTE | 2024-08-09 07:08 | XR ---
EXAMINATION TYPE: XR chest 1V DATE OF EXAM: 08/09/2024 3:54 AM COMPARISON: None CLINICAL INDICATION: Male, 38 years old with history of cough; [facility] TECHNIQUE: XR chest 1V Frontal view of the chest. FINDINGS: Lungs/Pleura: There is no evidence of pleural effusion, focal consolidation, or pneumothorax. Pulmonary vascularity: Unremarkable. Heart/mediastinum: Cardiomediastinal silhouette is unremarkable. Musculoskeletal: No acute osseous pathology. Other findings: None IMPRESSION: Low lung volumes with a generalized hazy appearance which could represent atelectasis versus pulmonar y edema correlate with serum BNP. [facility], , 08/09/2024 7:06 AM
[2024-08-09 07:22] LABS: Influenza A Not Detected (Not Detectd); Influenza B Not Detected (Not Detectd); RSV Not Detected (Not Detectd)
--- NOTE | 2024-08-09 07:59 | ED ---
URI HPI - General Chief Complaint: Upper Respiratory Infection Stated Complaint: Difficulty Breathing Time Seen by Provider: 08/09/24 03:15 Source: patient, EMS Mode of arrival: EMS Limitations: no limitations - History of Present Illness Initial Comments: This patient is a 38-year-old man who presents with complaint that he is not feeling well going on for nearly 2 days now. Patient states things started with upper respiratory symptoms, congestion, cough and now seem to be spreading to his chest. Patient denies chest pain or dyspnea but states that it feels congested. No leg pain or swelling. No change in urination or bowel movements. MD Complaint: fever, cough, nasal congestion Onset/Timin -: days(s) Severity: mild Quality: dull Consistency: constant Improves With: nothing Worsens With: nothing Context: sick contacts Associated Symptoms: nasal congestion, cough Treatments Prior to Arrival: none - Related Data Previous Rx's Medication Instructions Recorded Nicotine 14Mg/24Hr Patch [Habitrol] 1 patch TRANSDERM DAILY patch 07/29/24 risperiDONE [Uzedy] 100 mg SQ QMONTHLY #1 each 07/30/24 Albuterol Inhaler [Ventolin Hfa 2 puff INHALATION Q4HR PRN #8 gm 08/09/24 Inhaler] predniSONE [Deltasone] 20 mg PO BID #8 tab 08/09/24 Allergies Allergy/AdvReac Type Severity Reaction Status Date / Time fluphenazine Allergy Anaphylaxis Verified 08/09/24 03:01 haloperidol [From Haldol] Allergy Anaphylaxis Verified 08/09/24 03:01 Penicillins Allergy Rash/Hives Verified 08/09/24 03:01 Review of Systems ROS Statement: Those systems with pertinent positive or pertinent negative responses have been documented in the HPI. ROS Other: All systems not noted in ROS Statement are negative. Constitutional: Denies: fever, chills, weakness ENT: Reports: congestion. Denies: throat pain Respiratory: Reports: cough, wheezes. Denies: dyspnea Cardiovascular: Denies: chest pain, palpitations, edema, syncope Gastrointestinal: Denies: abdominal pain, nausea, vomiting Musculoskeletal: Denies: back pain Skin: Denies: rash Neurological: Denies: headache, weakness Past Medical History Past Medical History: Asthma History of Any Multi-Drug Resistant Organisms: None Reported Past Surgical History: Orthopedic Surgery Additional Past Surgical History / Comment(s): Nasal reconstruction, wrist surgery Past Anesthesia/Blood Transfusion Reactions: No Reported Reaction Past Psychological History: Anxiety, Schizophrenia Smoking Status: Current every day smoker Past Alcohol Use History: None Reported Past Drug Use History: Marijuana - Past Family History Mother Family Medical History: No Reported History General Exam Limitations: no limitations General appearance: alert, in no apparent distress Head exam: Present: atraumatic, normocephalic Eye exam: Present: normal appearance. Absent: scleral icterus, conjunctival injection ENT exam: Present: normal oropharynx Neck exam: Present: normal inspection Respiratory exam: Present: wheezes. Absent: respiratory distress, rales, rhonchi, stridor, accessory muscle use Cardiovascular Exam: Present: regular rate, normal rhythm, normal heart sounds. Absent: systolic murmur, diastolic murmur, rubs, gallop GI/Abdominal exam: Present: soft. Absent: distended, tenderness, guarding, rebound, rigid, mass Extremities exam: Present: normal inspection, normal capillary refill. Absent: pedal edema, calf tenderness Back exam: Present: normal inspection. Absent: CVA tenderness (R), CVA tenderness (L) Neurological exam: Present: alert Skin exam: Present: warm, dry, intact, normal color. Absent: rash Course Vital Signs 08/09/24 08/09/24 08/09/24 02:50 03:54 04:21 Temperature 98.0 F Pulse Rate 105 H 99 98 Respiratory 18 18 18 Rate Blood Pressure 132/82 139/80 128/88 O2 Sat by Pulse 95 95 95 Oximetry 08/09/24 08/09/24 08/09/24 05:31 05:41 05:47 Temperature Pulse Rate 105 H 98 94 Respiratory 18 20 20 Rate Blood Pressure 115/65 O2 Sat by Pulse 95 Oximetry 08/09/24 08/09/24 06:30 08:15 Temperature 98.5 F Pulse Rate 93 80 Respiratory 18 18 Rate Blood Pressure 132/97 134/80 O2 Sat by Pulse 95 98 Oximetry Medical Decision Making - Medical Decision Making The patient had chest x-ray that I interpreted as negative for acute infiltrate, pneumothorax, congestive heart failure Was pt. sent in by a medical professional or institution (, PA, BUSINESS CONTINUITY STRATEGY DIRECTOR, urgent care, hospital, or [place] [facility] facility...) When possible be specific @ -[No] Did you speak to anyone other than the patient for history (EMS, parent, family, police, friend...)? What history was obtained from this source @ -[No] Did you review nursing and triage notes (agree or disagree)? Why? @ -[I reviewed and agree with nursing and triage notes] Were old charts reviewed (outside hosp., previous admission, EMS record, old EKG, old radiological studies, urgent care reports/EKG's, [place] [facility] records)? Report findings @ -[No old charts were reviewed] Differential Diagnosis (chest pain, altered mental status, abdominal pain women, abdominal pain men, vaginal bleeding, weakness, fever, dyspnea, syncope, headache, dizziness, GI bleed, back pain, seizure, CVA, palpatations, mental health, musculoskeletal)? @ -[The patient differential diagnosis includes upper respiratory infection, bronchitis, pneumonia, this list not comprehensive EKG interpreted by me (3pts min.). @ -[As above] X-rays interpreted by me (1pt min.). @ -[I interpreted as above CT interpreted by me (1pt min.). @ -[None done] U/S interpreted by me (1pt. min.). @ -[None done] What testing was considered but not performed or refused? (CT, X-rays, U/S, labs)? Why? @ -[None] What meds were considered but not given or refused? Why? @ -[None] Did you discuss the management of the patient with other professionals (professionals i.e. , PA, BUSINESS CONTINUITY STRATEGY DIRECTOR, lab, RT, psych nurse, manager social services, rubber cutter, teacher, plain clothes police officer, skilled nursing case manager)? Give summary @ -[No] Was smoking cessation discussed for >3mins.? @ -[No] Was critical care preformed (if so, how long)? @ -[No] Were there social determinants of health that impacted care today? How? (Homelessness, low income, unemployed, alcoholism, drug addiction, transportation, low edu. Level, literacy, decrease access to med. care, retirement, rehab)? @ -[No] Was there de-escalation of care discussed even if they declined (Discuss DNR or withdrawal of care, Hospice)? DNR status @ -[No] What co-morbidities impacted this encounter? (DM, HTN, Smoking, COPD, CAD, Cancer, CVA, ARF, Chemo, Hep., AIDS, mental health diagnosis, sleep apnea, morbid obesity)? @ -[None] Was patient admitted / discharged? Hospital course, mention meds given and route, prescriptions, significant lab abnormalities, going to OR and other pertinent info. @ -[Patient is a 38-year-old man with cough and congestion going on 2 days. Exam consistent with bronchitis. X-ray with no evidence of pneumonia. The patient feeling better following treatment here, stable for outpatient treatment. Discussed appropriate further care and follow-up as well as return parameters Undiagnosed new problem with uncertain prognosis? @ -[No] Drug Therapy requiring intensive monitoring for toxicity (Heparin, Nitro, Insulin, Cardizem)? @ -[No] Were any procedures done? @ -[No] Diagnosis/symptom? @ -[Acute bronchitis Acute, or Chronic, or Acute on Chronic? @ -[Acute Uncomplicated (without systemic symptoms) or Complicated (systemic symptoms)? @ -[Uncomplicated Side effects of treatment? @ -[No] Exacerbation, Progression, or Severe Exacerbation? @ -[No] Poses a threat to life or bodily function? How? (Chest pain, [place], [place], pneumonia, PE, COPD, DKA, ARF, appy, cholecystitis, CVA, Diverticulitis, Homicidal, Suicidal, threat to staff... and all critical care pts) @ -[No] All treatments are based on ideal body weight as in ED triage - Lab Data Lab Results 08/09/24 Range/Units 03:53 Influenza Type A (PCR) Not Detected (Not Detectd) Influenza Type B (PCR) Not Detected (Not Detectd) RSV (PCR) Not Detected (Not Detectd) SARS-CoV-2 (PCR) Not Detected (Not Detectd) Disposition Clinical Impression: Bronchitis Disposition: HOME SELF-CARE Condition: Good Instructions (If sedation given, give patient instructions): Acute Bronchitis (ED) Prescriptions: predniSONE [Deltasone] 20 mg PO BID #8 tab Albuterol Inhaler [Ventolin Hfa Inhaler] 2 puff INHALATION Q4HR PRN #8 gm PRN Reason: Wheezing Is patient prescribed a controlled substance at d/c from ED?: No Referrals: None,Stated [Primary Care Provider] - 1-2 days
[2024-08-09] MEDS: predniSONE 20 MG TAB PO STA (08:12)
[2024-08-09 08:16] VITALS: BP 134/80; PULSE 80
== END 2024-08-09 08:17 | disposition home or self-care (01) ==
LOC: EC 02:47
DX: J40 Bronchitis, not specified as acute or chronic (principal); F17.200 Nicotine dependence, unspecified, uncomplicated; Z88.0 Allergy status to penicillin; Z88.8 Allergy status to other drugs, medicaments and biological substances
CPT/HCPCS: 94640; 87636; 71045; 99285; J7512